=== PATIENT | male | born 1935 | race Caucasian/White ===

== ENCOUNTER 2016-05-20 22:30 | Inpatient (IN) | payer MEDICARE ==
[~2016-05-20] VITALS: Ht 170.2 cm; Wt 77.1 kg
[2016-05-21] MEDS ORDERED: PEPCID20 MG PO (01:41)
[2016-05-21] MEDS ORDERED: ZETIA10 MG PO (01:43)
[2016-05-21] MEDS ORDERED: AMBIEN5 MG PO (01:44)
[2016-05-21] MEDS ORDERED: NOVOLOG100 U/M1 SC (01:47)
[2016-05-21] MEDS ORDERED: NOVOLIN N100 U/ML SQ ×2 (01:49→01:50)
[2016-05-21] MEDS ORDERED: BYSTOLIC5 MG PO (01:51)
[2016-05-21] MEDS ORDERED: MIRALAX17 GM PO (01:53)
[2016-05-21] MEDS ORDERED: BUMEX2 MG PO (01:56)
[2016-05-21] MEDS ORDERED: RENVELA800 MG PO (01:57)
[2016-05-21] MEDS ORDERED: COLACE100 MG PO (01:57)
[2016-05-21] MEDS ORDERED: MELATONIN 3 MG1 TAB PO (01:58)
[2016-05-21] MEDS ORDERED: ASPIRIN81 MG PO (01:59)
[2016-05-21] MEDS ORDERED: FOLIC ACID0.8 MG PO (01:59)
--- NOTE | 2016-05-21 02:45 | NUR ---
RECEIVED TO RM 1130 VIA STRETCHER PER AMBULANCE FROM [facility] ED. DX: ALTERED MENTAL STATUS. ACCOMPANIED BY EMS TECHS AND . PATIENT IS CALM AND COOPERATIVE AT THIS TIME. IT WAS REPORTED THAT PATIENT HAS BEEN MAKING THREATS TO HARM . HX: HTN, DIABETES, HYPERLIPEDEMIA, CAD, RENAL DISEASE ON DIALYSIS 3 TIMES PER WEEK. AWAKE, ALERT AND ORIENTED X 3 NOW, BUT HE DOES GET CONFUSED AND FORGETFUL MORE OF LATE. CONSENT FOR TX. SIGNED PER AND ADMISSION NOTE DONE. MEDICATIONS RECONCILED.
[2016-05-21 06:58] LABS: HEMOGLOBIN A1C 7.9 % (4.8-6.0)
[2016-05-21 07:05] LABS: CHOL - HDL RATIO 3.2 ratio (2.3-4.9); LDL-HDL RATIO 1.8 ratio (1.5-3.5); THYROID STIMULATING HORMONE 1.69 uIU/mL (0.36-3.74)
--- NOTE | 2016-05-21 07:50 | NUR ---
(B)RECEIVED PATIENT SITTING IN A CHAIR IN HIS ROOM. ORIENTED TO SELF, HOSPITAL (BUT DID NOT KNOW WHICH HOSPITAL) DAY, MONTH AND DATE. POOR INSIGHT INTO THE REASON FOR HOSPITALIZATION RELATING "CAUSE THEY PUT ME HERE TO CHANGE SOME OF MY MEDS." ASSESSMENT COMPLETED AND PATIENT IS NOTED TO BECOME MORE CONFUSED THE ASSESSMENT GOES ON. NOTED TO BE LABILE AEB TALKING AND SMILING THEN BECOMES ANGRY WITH PRESSURED SPEECH. RELATES "THIS IS REDICULOUS. TWENTY PEOPLE AND THIS IS THE MOST DISORGANIZED MESS I'VE EVER SEEN." NEGATIVE, IRRITABLE AND PRESSURED SPEECH WHEN FIRST ARRIVED FOR VISITATION. PATIENT THEN BECOMES CALM AND PLEASANT. (I)ADMINISTER MEDS AND MONITOR COMPLIANCE. PROVIDE TIME FOR PATIENT TO VENT FEELINGS AND ENCOURAGE POSITIVE COPING SKILLS. (R)MED COMPLIANT. PATIENT IS CONFUSED AND HAS DIFFICULTY EXPRESSING SELF AND WILL RAMBLE. CONTINUES TO HAVE EPISODES OF BEING IRRITABLE AND NEGATIVE AND HAS TO BE ALLOWED TIME TO VENT THEN WILL BE PLEASANT . (P)CONTINUE POC AND MAINTAIN FALL PRECAUTIONS.
[2016-05-21 09:26] VITALS: BP 152/57
[2016-05-21 13:37] VITALS: BP 152/57
--- NOTE | 2016-05-21 18:22 | NUR ---
DR MACKENZIE PAGED REGARDING INSULIN ORDERS. NUMBER LEFT FOR CALL BACK.
--- NOTE | 2016-05-21 18:27 | NUR ---
SPOKE WITH DR MACKENZIE RE: INSULIN. RELATES WILL SEE HIM IN THE AM. NO ORDERS RECEIVED.
[2016-05-21 19:30] VITALS: BP 169/89
--- NOTE | 2016-05-21 20:19 | NUR ---
RECEIVED IN DAYROOM. WALKING AROUND TALKING TO HIS PEERS AND STAFF. VERY CONFUSED. RAMBLING FROM ONE TOPIC TO THE NEXT. CALM AND COOPERATIVE WITH CARE AND ASSESSMENT. NO SIGNS OF AGGRESSION. REDIRECT AND REORIENT NEEDED. CONTINUES TO TALK WITH HIS PEERS. CONTINUE PLAN OF CARE
[2016-05-22 08:41] LABS: BASOPHILS 0.4 % (0.0-2.0); EOSINOPHILS 1.2 % (0-7); HEMATOCRIT 32.7 % (42.0-54.0); HEMOGLOBIN 10.8 g/dL (13.5-17.5); IMMATURE GRANULOCYTES 0.1 % (0-5); LYMPHOCYTES 10.2 % (15-50); MCH 30.7 pg (26.0-34.0); MCV 92.9 fL (80.0-100.0); MONOCYTES 11.2 % (2-11); NEUTROPHILS 76.9 % (40-80); PLATELET COUNT 111 10x3/uL (130-400); RBC 3.52 10x6/uL (4.20-6.10); RDW 12.5 % (11.5-14.5); WBC 6.9 10x3/uL (4.8-10.8)
[2016-05-22 08:45] VITALS: Ht 170.2 cm; Wt 77.1 kg
[2016-05-22 08:58] LABS: ALBUMIN 3.1 g/dL (3.4-5.0); ANION GAP 13.8 mmol/L (8-16); BILIRUBIN - TOTAL 0.45 mg/dL (0.2-1.3); CALCIUM 10.6 mg/dL (8.5-10.1); CARBON DIOXIDE 29.6 mmol/L (21.0-32.0); CREATININE - SERUM 7.2 mg/dL (0.6-1.3); PHOSPHOROUS 5.4 mg/dL (2.5-4.9); POTASSIUM - SERUM 4.4 mmol/L (3.5-5.1); PROTEIN - SERUM 6.5 g/dL (6.4-8.2)
--- NOTE | 2016-05-22 09:28 | NUR ---
B) Rec'd pt in day room for morning med pass, alert, pleasant mood, cooperative, compliant with meds, no aggression reported. I) Admin meds as ordered, provide group activity as directed. R) No s/s adverse reaction to meds, cooperative in group. P) Cont plan of care including meds and group activity/therapy.
[2016-05-22 13:24] VITALS: BP 194/88
--- NOTE | 2016-05-22 19:38 | NUR ---
RECEIVED IN DAYROOM. SETTING IN CHAIR AWAY FROM PEERS. NOT SOCIALIZING TONIGHT. CALM AND COOPERATIVE WITH CARE AND ASSESSMENT. EYES CLOSED AT TIMES. REINFORCE FALLS SAFETY. CONTINUES TO REST IN CHAIR. CONTINUE PLAN OF CARE
[2016-05-22 22:18] VITALS: BP 159/68
[2016-05-22 22:19] LABS: APPEARANCE HAZY (CLEAR); COLOR YELLOW (YELLOW)
[2016-05-22 22:20] LABS: BILIRUBIN NEGATIVE (NEGATIVE); GLUCOSE 1000 mg/dL (NEGATIVE); KETONE NEGATIVE (NEGATIVE); LEUKOCYTE ESTERASE 2+ (NEGATIVE); NITRITE NEGATIVE (NEGATIVE); PROTEIN 1+ mg/dL (NEGATIVE); UROBILINOGEN NORMAL (NORMAL)
[2016-05-22 22:21] LABS: BACTERIA FEW /hpf (NONE SEEN); RED CELLS - URINE 0-5 /hpf (0-5); WHITE CELLS - URINE >50 /hpf (0-5)
[2016-05-23 07:25] LABS: BASOPHILS 0.4 % (0.0-2.0); EOSINOPHILS 1.4 % (0-7); HEMATOCRIT 33.8 % (42.0-54.0); HEMOGLOBIN 11.1 g/dL (13.5-17.5); IMMATURE GRANULOCYTES 0.1 % (0-5); LYMPHOCYTES 15.6 % (15-50); MCH 30.7 pg (26.0-34.0); MCHC 32.8 g/dL (31.0-37.0); MCV 93.4 fL (80.0-100.0); MEAN PLATELET VOLUME 12.2 fL (7.4-10.4); MONOCYTES 8.8 % (2-11); NEUTROPHILS 73.7 % (40-80); PLATELET COUNT 131 10x3/uL (130-400); RBC 3.62 10x6/uL (4.20-6.10); RDW 12.5 % (11.5-14.5); WBC 8.1 10x3/uL (4.8-10.8)
[2016-05-23 07:38] LABS: CALCIUM 9.7 mg/dL (8.5-10.1); CARBON DIOXIDE 27.3 mmol/L (21.0-32.0); CREATININE - SERUM 8.4 mg/dL (0.6-1.3); PHOSPHOROUS 5.1 mg/dL (2.5-4.9); POTASSIUM - SERUM 4.3 mmol/L (3.5-5.1)
[2016-05-23 09:00] VITALS: BP 124/59
--- NOTE | 2016-05-23 15:10 | NUR ---
RECEIVED THIS AM UP IN CHAIR.DIALYSIS DONE THIS AM.TOLERATED DIALYSIS WELL.CALM AND COOPERATIVE.ORIENTED TO SELF AND HOSPITAL,BUT DOES NOT KNOW NAME OF HOSPITAL OR TOWN,DATE.AMBULATES PER SELF WITH WALKER.WILL CONTINUE WITH PLAN OF CARE,MONITOR FOR SAFETY AND CHANGES.IS COMPLIANT WITH MEDS.
--- NOTE | 2016-05-23 15:39 | PSY ---
PATIENT NAME:JOLYNN PAUL MEDICAL RECORD: [id number] : 33 LOCATION:[facility]LL[facility]uleta1 ADMISSION DATE: 05/20/16 ACCOUNT: [id number] PSYCHIATRIC EVALUATION DATE OF EVALUATION: 05/22/16 Psychiatric Evaluation IDENTIFYING DATA: The patient is 81 years old and he is admitted to the hospital on a voluntary basis. CHIEF COMPLAINT: Agitation. HISTORY OF PRESENT ILLNESS: The patient apparently has a history of dementia. He became agitated yesterday and was threatening to kill his . Apparently, the situation was sufficient such that he had to be brought to the Emergency Room where he continued to make threats and he was subsequently hospitalized on the behavioral unit. Today, he has little or no recollection of these events. He is quite confused. He is not really understanding why he is here or what happened and when it is explained to him, he becomes angry and denies it. PAST MEDICAL HISTORY: Significant for hyperlipidemia, diabetes, hypertension and coronary artery disease. PAST PSYCHIATRIC HISTORY: Significant for an established diagnosis of dementia, although details of this are unclear. ALLERGIES: PENICILLIN, LISINOPRIL, LIPITOR, CIPRO, PRAVACHOL AND REGLAN. CURRENT MEDICATIONS: Include melatonin, Bumex, insulin, Zetia, NovoLog, and Pepcid. SOCIAL HISTORY: The patient is . He does have adult children. He is retired. He denies a history of drug or alcohol abuse. MENTAL STATUS EXAMINATION: The patient is awake, alert and oriented to person and place only. His mood is anxious. His affect is constricted. Thought processes are circumstantial. Memory, concentration and abstraction abilities are moderately impaired and he denies any active intent to harm himself or others as well as any overt psychotic symptoms. ASSETS: Supportive family members. LIABILITIES: Limited insight. DIAGNOSTIC IMPRESSION: AXIS I: Senile dementia of the Alzheimer's type with behavioral disturbances. AXIS II: None. AXIS III: Hypertension, diabetes and coronary artery disease. AXIS IV: Moderate stressors. AXIS V: Global assessment of functioning is 35. PLAN: At this time, the patient is admitted to the hospital secondary to agitated behavior associated with a dementing illness. He will be comprehensively evaluated from both a medical, psychological, and social standpoint. He will be given both mood stabilizing and memory enhancing medications as deemed appropriate. His long-term prognosis is guarded. TRANSINT:[id number] Voice Confirmation ID: [id number] DOCUMENT ID: [id number] CIERRA WINSLOW MD at 1539 CC: [id number] DICTATION DATE: 05/22/16 1246 FIXED INCOME MANAGER: 05/22/16 1303 ADM IN [facility] [address] [place] [address]
[2016-05-23 20:00] VITALS: BP 162/82
--- NOTE | 2016-05-23 20:18 | NUR ---
RECEIVED IN DINING ROOM. SETTING A WHEELCHAIR BY HIMSELF. SOCIAL WITH THIS STAFF MEMBER. IN GOOD SPIRITS. STATES HE HAD A GOOD DAY. ORIENTED X2. CALM AND COOPERATIVE WITH CARE AND ASSESSMENT. ENCOURAGE TO EXPRESS NEEDS. CONTINUES TO SET BY HIMSELF IN DINING ROOM. CONTINUE PLAN OF CARE
[2016-05-24 06:00] LABS: BASOPHILS 0.5 % (0.0-2.0); EOSINOPHILS 2.2 % (0-7); HEMOGLOBIN 9.3 g/dL (13.5-17.5); LYMPHOCYTES 18.4 % (15-50); MCH 30.9 pg (26.0-34.0); MCHC 33.2 g/dL (31.0-37.0); MEAN PLATELET VOLUME 11.8 fL (7.4-10.4); MONOCYTES 15.1 % (2-11); NEUTROPHILS 63.8 % (40-80); PLATELET COUNT 106 10x3/uL (130-400); RBC 3.01 10x6/uL (4.20-6.10); RDW 12.6 % (11.5-14.5)
[2016-05-24 06:08] LABS: WBC 5.8 10x3/uL (4.8-10.8)
[2016-05-24 06:24] LABS: ANION GAP 10.4 mmol/L (8-16); CALCIUM 9.1 mg/dL (8.5-10.1); CARBON DIOXIDE 29.4 mmol/L (21.0-32.0); PHOSPHOROUS 4.1 mg/dL (2.5-4.9); POTASSIUM - SERUM 3.8 mmol/L (3.5-5.1)
[2016-05-24 07:20] LABS: RAPID PLASMA REAGIN Non Reactive (Non Reactive)
[2016-05-24 08:12] VITALS: BP 139/64
[2016-05-24 08:16] LABS: FOLATE (FOLIC ACID) - SERUM 17.1 ng/mL (>3.0)
--- NOTE | 2016-05-24 09:53 | NUR ---
B) Patient is awake and alert, he is very confused, he gets upset because he is confused and forgets what he is saying and what he is suppose to do. He does realize he has some memory loss and this makes him sad. Patient walks with a walker. He is compliant with medications. I) Provide prescribed meds, redirect and reorientate as needed. R) Patient is compliant with medications. He is working with a puzzle. P) Continue plan of care.
--- NOTE | 2016-05-24 14:43 | NUR ---
Nutrition follow-up: Diet: Renal ADA PO intake ~75% of meals Labs reviewed PO intake is good at this time RDN following.
--- NOTE | 2016-05-24 14:51 | PN ---
PATIENT:JOLYNN PAUL MEDICAL RECORD: [id number] LOCATION:[facility]ta ADMISSION DATE: 05/20/16 PROGRESS NOTE DATE OF SERVICE: 05/23/2016 SUBJECTIVE: The patient's case was discussed with staff. He has no new complaint. OBJECTIVE: The patient is in good behavioral control with limited insight about his condition. He tolerates his medicines well. ASSESSMENT: No change in diagnoses. PLAN: The patient has shown significant improvement in his cognition leading me to suspect that some of the difficulties that precipitated the admission were related to a delirium, possibly or probably associated with an incorrect metabolic status and/or medication compliance. He is still clearly demented and shows evidence of clear and very significant cognitive impairment, but his cognition has very much improved in the past for 24-48 hours. Current medicines will be maintained. TRANSINT:[id number] Voice Confirmation ID: [id number] DOCUMENT ID: [id number] CIERRA WINSLOW MD at 1451 CC: [id number] DICTATION DATE: 05/23/16 1533 GREEN HIDE INSPECTOR: 05/23/16 1607 ADM IN [facility] [address] [place] [address]
[2016-05-24 19:46] VITALS: BP 150/73
--- NOTE | 2016-05-25 01:46 | NUR ---
B) Recieved sitting in the day room, alert and oriented to self, when asked where he is he answers 'right here' I) Administered perscrived medications, oriented to location, R) Medication compliant, confused , calm and pleasant. P) Continue Plan of Care.
[2016-05-25 07:42] VITALS: BP 147/68
--- NOTE | 2016-05-25 11:29 | NUR ---
Mr. Keyes had bedside hemodialysis today via his left lower arm av fistula from 0800 until 1100. Average blood flow was 400mls/minute. Net fluid removal was 2000 mls. Post vital signs were: B/P: 144/62, HR: 70, Temp: 98.3, Resps: 16. No complications today.
--- NOTE | 2016-05-25 13:23 | NUR ---
PT HAD DIALYSIS THIS MORNING SO IS TIRED THIS AFTERNOON. PT IS CALM, COOPERATIVE. MED COMPLIANT. FALL PRECAUTIONS MAINTAINED. ORIENTED TO PERSON AND PLACE. REDIRECTION DONE WHEN NEEDED. WLL CONTINUE TO MONITOR. NO AGGRESSION NOTED. CONTINUE PLAN OF CARE.
--- NOTE | 2016-05-25 14:20 | PN ---
PATIENT:JOLYNN PAUL MEDICAL RECORD: [id number] LOCATION:ANABELLA Álvarez112 ADMISSION DATE: 05/20/16 PROGRESS NOTE DATE OF SERVICE: 05/24/2016 SUBJECTIVE: The patient's case was discussed with staff. He has no new complaint. OBJECTIVE: The patient is in good behavioral control. He has not been aggressive. He is sleeping well. ASSESSMENT: No change in diagnoses. PLAN: The patient is clearly demented, although he has improved since admission. The family is wanting him placed in a penitentiary because of his aggression toward his . We have not seen aggression here probably because of the supportive and therapeutic environment he is in. Placement is being sought at this time and if this level of improvement is maintained, I anticipate he could reasonably be transitioned out of the hospital after the weekend. TRANSINT:[id number] Voice Confirmation ID: [id number] DOCUMENT ID: [id number] CIERRA WINSLOW MD at 1420 CC: [id number] DICTATION DATE: 05/24/16 1501 X RAY CONTROL EQUIPMENT REPAIRER: 05/24/16 1735 ADM IN [place] [address] [place] [address]
--- NOTE | 2016-05-25 15:43 | NUR ---
[facility] - Patient's In-Center unit is [facility] on a Sunday//Sunday 1st shift schedule. The clinic was notified of the patient's admission and appropriate medical records forwarded to the unit. Will cont to monitor for further OPHD needs. AARONM PRL
[2016-05-25 19:30] VITALS: BP 184/80
--- NOTE | 2016-05-26 01:12 | NUR ---
B) Recieved sitting in the day room watching TV, alert and oriented to self, unaware that he was in a hospital, calm and pleasant, I) Administered perscribed medications, reoriented as needed, R) Medication compliant resting now quietly in bed, P) Continue plan of care.
[2016-05-26 07:01] LABS: BASOPHILS 0.4 % (0.0-2.0); EOSINOPHILS 3.7 % (0-7); HEMATOCRIT 28.5 % (42.0-54.0); HEMOGLOBIN 9.3 g/dL (13.5-17.5); LYMPHOCYTES 21.1 % (15-50); MCH 30.7 pg (26.0-34.0); MCHC 32.6 g/dL (31.0-37.0); MCV 94.1 fL (80.0-100.0); MEAN PLATELET VOLUME 12.1 fL (7.4-10.4); MONOCYTES 17.8 % (2-11); PLATELET COUNT 101 10x3/uL (130-400); RBC 3.03 10x6/uL (4.20-6.10); RDW 12.8 % (11.5-14.5); WBC 5.2 10x3/uL (4.8-10.8)
[2016-05-26 07:31] LABS: ANION GAP 11.2 mmol/L (8-16); CALCIUM 8.4 mg/dL (8.5-10.1); CREATININE - SERUM 6.1 mg/dL (0.6-1.3); PHOSPHOROUS 4.6 mg/dL (2.5-4.9); POTASSIUM - SERUM 4.2 mmol/L (3.5-5.1)
[2016-05-26 07:59] VITALS: BP 130/55
--- NOTE | 2016-05-26 13:55 | NUR ---
(B)RECEIVED PATIENT SITTING IN A CHAIR AT THE NURSES STATION. ORIENTED TO SELF AND HOSPITAL ALTHOUGH RELATES "I THOUGHT I WAS IN [place]." POOR INSIGHT INTO THE REASON FOR HOSPITALIZATION RELATING "CAUSE I FELL." FISTULA TO LEFT ARM WITH GOOD THRILL AND BRUIT. CONFUSED BUT PLEASANT. SOCIAL HOWEVER DOES NOT FOLLOW TOPIC OF CONVERSATION. (I)ADMINISTER MEDS AND MONITOR COMPLIANCE. REORIENT NEEDED. (R)MED COMPLIANT. POOR REORIENTATION DUE TO IMPAIRED ABILITY TO COMPREHEND, PROCESS AND MAINTAIN INFORMATION. REMAINS CONFUSED HOWEVER VERY PLESANT. FOCUSED ON WHEN HE WILL BE GETTING DIALYSIS. (P)CONTINUE POC AND MAINTAIN FALL PRECAUTIONS.
--- NOTE | 2016-05-26 15:24 | NUR ---
reviewed paperwork and medications with daughter and spouse. reviewed admit packet and welcome packet with both as well. gave another copy of welcome packet to daughter and spouse. reviewed tx plan, disease process, discharge planning, and therapy. both verbalized understanding and thanked me for my assistance. sam rn social services was present and answered more questions in regards to discharge placement. reviewed [facility] testing and results.
--- NOTE | 2016-05-26 16:03 | NUR ---
SW SPOKE WITH PT'S ABOUT PLACEMENT AT [facility]. PT'S STATED THAT [facility] DOES NOT ACCEPT [facility] PT[facility]. SW DISCUSSED SENDING PAPERWORK TO ALL REQUESTED FACILITIES. PT'S WAS GRATEFUL FOR WORK BEING DONE TO HELP HER .
--- NOTE | 2016-05-26 16:18 | PN ---
PATIENT:JOLYNN PAUL MEDICAL RECORD: [id number] LOCATION:[facility] Zuleta ADMISSION DATE: 05/20/16 PROGRESS NOTE DATE OF SERVICE: 05/25/2016 SUBJECTIVE: The patient's case was discussed with staff. He has no new complaint. OBJECTIVE: The patient is in good behavioral control with limited insight about his condition. He is quite impaired cognitively, but has not been aggressive. ASSESSMENT: No change in diagnoses. PLAN: Current therapies and medications will be maintained. His long-term prognosis is guarded. TRANSINT:[id number] Voice Confirmation ID: [id number] DOCUMENT ID: [id number] CIERRA WINSLOW MD at 1618 CC: [id number] DICTATION DATE: 05/25/16 1431 SEAT BUILDER: 05/25/16 1525 ADM IN [place] [address] [place] [address]
[2016-05-26 19:30] VITALS: BP 188/78
--- NOTE | 2016-05-26 20:00 | NUR ---
B) RECEIVED IN DAYROOM SITTING IN W/C. ALERT AND ORIENTED TO SELF AND HOSPITAL. CALM AND COOPERATIVE WITH ASSESSMENT AND CARE. IN PLEASANT MOOD. I) ADMINISTER PRESCRIBED MEDICATIONS , REDIRECT TO NON-REALITY VS REALITY. R) COMPLIANT WITH MEDICATIONS AND UNIT MILIEU. SEEMS MORE PLEASANT TONIGHT. P) CONTINUE CURRENT PLAN OF CARE AND MONITOR.
[2016-05-27 07:50] VITALS: BP 166/58
--- NOTE | 2016-05-27 07:53 | NUR ---
B) Patient is awake and alert, he is oriented to person and place and sometimes tiime and situation other times he is confused and he realizes he gets confused and this causes frustration for him. This am he is pleasant he has not shown any agitation or aggression. I) Provide prescribed meds and reorientate as needed. R) Patient is compliant with meds and unit milieu. P) Continue plan of care.
--- NOTE | 2016-05-27 10:07 | NUR ---
Patient currently in room with dialysis nurse, he is taking his dialysis at this time.
--- NOTE | 2016-05-27 13:30 | NUR ---
Patient's female visitor came to see him now. She had called about an hour ago and asked when visitation is and she said ok.
--- NOTE | 2016-05-27 14:30 | NUR ---
Patients female visitor showed up again and explained to her that visitation is at 3:30. She said "Oh, ok"
[2016-05-27 20:00] VITALS: BP 164/73
--- NOTE | 2016-05-27 20:30 | NUR ---
B) RECEIVED IN DAYROOM SITTING IN W/C. AWAKE AND ALERT TO NAME AND SITUATION. HE IS IN PLEASANT MOOD, BUT GETS CONFUSED. NO AGGRESSION NOTED TONIGHT. I) ADMINISTER PRESCRIBED MEDICATION, REORIENT TO REALITY VS NON-REALITY. VSS. R) MEDICATION COMPLIANT. CALM AND COOPERATIVE WITH ASSESSMENT AND CARE. P) CONTINUE WITH CURRENT PLAN OF CARE AND MONITOIR FOR SAFETY AND CHANGES.
[2016-05-28 07:57] VITALS: BP 159/66
--- NOTE | 2016-05-28 13:20 | NUR ---
(B)RECEIVED PATIENT SITTING IN A CHAIR AT THE NURSES STATION. ORIENTED TO [facility] IN THIS ORDER. PATIENT UNABLE TO VERBALIZE REASON FOR HOSPITALIZATION AEB "CAUSE OF" PATIENT LAUGHS "THAT'S TERRIBLE" LAUGHS AND COULD NOT ANSWER QUESTION. SOCIAL WITH STAFF AND PEERS. CALM AND COOPERATIVE. VERY CONFUSED. OBSSESSES OVER GETTING DRESSING REMOVED FROM FISTULA. (I)ADMINISTER MEDS AND MONITOR COMPLIANCE. INVOLVE IN REALITY BASED GROUPS AND CONVERSATION. (R)MED COMPLIANT. COOPERATIVE WITH UNIT MILEU HOWEVER DUE TO IMPAIRED ABILITY TO COMPREHEND AND PROCESS INFORMATION PATIENT HAS DIFFICULTY FOLLOWING CONVERSATION AND GROUPS. (P)CONTINUE POC AND MAINTAIN FALL PRECAUTIONS.
[2016-05-28 19:30] VITALS: BP 175/78
--- NOTE | 2016-05-28 20:01 | NUR ---
RECEIVED IN DAYROOM. SETTING IN WHEELCHAIR WITH PEERS AT HIS SIDE. SOCIAL WITH STAFF AND PEERS. CALM AND COOPERATIVE WITH STAFF AND PEERS. NO SIGNS OF AGGRESSION. HELPFUL AND CARES FOR PEERS. ENCOURAGE TO EXPRESS NEEDS. CONTINUES TO SOCIALIZE WITH STAFF AND PEERS. CONTINUE PLAN OF CARE
[2016-05-29 02:00] VITALS: BP 147/107
[2016-05-29 07:58] VITALS: BP 183/69
--- NOTE | 2016-05-29 10:00 | NUR ---
B) Received pt in dining room for b'fast, alert, compliant with meds, cooperative with staff, pleasant mood. I) Admin meds as ordered, provide group activity as directed. R) No s/s adverse reaction to meds, cooperative with staff during group activity. P) Cont. plan of care including medications and group therapy.
--- NOTE | 2016-05-29 13:14 | PN ---
PATIENT:JOLYNN PAUL MEDICAL RECORD: [id number] LOCATION:[facility] Zuleta ADMISSION DATE: 05/20/16 PROGRESS NOTE DATE OF SERVICE: 05/26/2016 SUBJECTIVE: The patient's case was discussed with staff. He has no new complaint. OBJECTIVE: The patient was tested by Dr. Caitie Osman's today. He scores of 15/30 on the [place] scale. This is consistent with what I would have estimated and it indicates that he is in the moderate to severe range regarding his dementia. He will be treated with both Aricept and Namenda. His behavior today has been good. The family is still seeking long term placement. TRANSINT:[id number] Voice Confirmation ID: [id number] DOCUMENT ID: [id number] CIERRA WINSLOW MD at 1314 CC: [id number] DICTATION DATE: 05/26/16 1626 COMPRESSED GAS PLANT WORKER: 05/26/162034 ADM IN [place] [address] [place] [address]
[2016-05-29 20:00] VITALS: BP 147/101
--- NOTE | 2016-05-29 21:44 | NUR ---
RECEIVED IN DAYROOM. SETTING IN WHEELCHAIR. CALM AND COOPERATIVE WITH CARE AND ASSESSMENT. SOCIAL WITH STAFF AND PEERS. CONFUSED. NO SIGNS OF AGGGRESSION. ENCOURAGE TO EXPRESS NEEDS. TOOK PM MEDS ORDERED. RESTING IN BED EYES CLOSED AT THIS TIME. CONTINUE PLAN OF CARE
[2016-05-30 10:36] VITALS: BP 171/70
--- NOTE | 2016-05-30 14:35 | PN ---
PATIENT:JOLYNN PAUL MEDICAL RECORD: [id number] LOCATION:[facility]LL[facility] Zuleta ADMISSION DATE: 05/20/16 PROGRESS NOTE DATE OF SERVICE: 05/29/2016 SUBJECTIVE: The patient's case was discussed with staff. He has no new complaint. OBJECTIVE: The patient denies intent to harm himself or others. He generally tolerates his medicines well. He is quite impaired cognitively. ASSESSMENT: No change in diagnoses. PLAN: Current medicines have been reviewed and will be maintained. Long-term prognosis is guarded. TRANSINT:[id number] Voice Confirmation ID: [id number] DOCUMENT ID: [id number] CIERRA WINSLOW MD at 1435 CC: [id number] DICTATION DATE: 05/29/16 1324 FIRE BATTALION CHIEF: 05/29/16 203 ADM IN [place] [id number] [place] [address]
[2016-05-30] MEDS ORDERED: NAMENDA5 MG PO (14:46)
[2016-05-30] MEDS ORDERED: ARICEPT5 MG PO (14:46)
[2016-05-30] MEDS ORDERED: HUMULIN N100 U/ML SC (14:46)
[2016-05-30] MEDS ORDERED: SENSIPAR30 MG PO (14:46)
--- NOTE | 2016-05-30 16:43 | NUR ---
DIAYLSIS TREATMENT INITIATED AT 1319 AND DISCONTINUED AT 1619. REMOVED 1500ML OF FLUID. PROCESSED 57.7 LITERS OF BLOOD. PT VERY FRIENDLY. POST VITALS FOLLOWS; BPl 176/58, HR: 65, TEMP: 97.6, RESP: 14.
--- NOTE | 2016-05-30 17:25 | NUR ---
(B)RECEIVED PATIENT SITTING IN A CHAIR AT THE NURSES STATION. ORIENTED TO SELF ONLY. POOR INSIGHT INTO THE REASON FOR HOSPITALIZATION. SOCIALIZES WITH PEERS. PATIENT LAUGHS AND TALKS WITH STAFF HOWEVER DOES NOT FOLLOW TOPIC OF CONVERSATION. LAUGHS AT THINGS THAT HAPPEN ON THE UNIT. APPEARS THAT PATIENT IS AWARE OF HIS FORGETFULNESS AND LAUGHS AND TALKS OF OTHER THINGS TO DISTRACT STAFF'S ATTENTION. CONFUSED AND PLEASANT. (I)ADMINISTER MEDS AND MONITOR COMPLIANCE. REORIENT NEEDED. (R)MED COMPLIANT. APPEARS TO UNDERSTAND WHEN REORIENTED HOWEVER PATIENT CAN NOT REPEAT INFORMATION JUST GIVEN TO HIM. LAUGHS AND JUMPS FROM TOPIC TO TOPIC. (P)CONTINUE POC AND MAINTAIN FALL PRECAUTIONS.
[2016-05-30 19:33] VITALS: BP 176/68
--- NOTE | 2016-05-30 19:39 | NUR ---
RECEIVED IN HALLWAY. OUTSIDE OF NURSES STATION. SETTING IN WHEELCHAIR WITH PEERS AT HIS SIDE. SOCIALIZING WITH PEERS. CALM AND COOPERATIVE WITH CARE AND ASSESSMENT. ENCOURAGE TO EXPRESS NEEDS. REINFORCE FALLS SAFETY. CONTINUES TO SET CALMLY IN HALLWAY. CONTINUE PLAN OF CARE
--- NOTE | 2016-05-31 08:19 | NUR ---
(B)RECEIVED PATIENT SITTING ON THE SIDE OF HIS BED. ORIENTED TO HOSPITAL RELATING "THIS IS NOT MY HOSPITAL. [facility]" "SundayJUN 03 AND THIS IS A NEW YEAR 2017." RELATES IS HOSPITALIZED DUE TO "CAUSE EVERYONE WAS PICKING ON ME. NO IT WAS MEDICAL." THRILL AND BRUIT PRESENT IN LEFT ARM FISTULA. SOCIAL. CALM AND COOPERATIVE. (I)ADMINISTER MEDS AND MONITOR COMPLIANCE. REORIENT NEEDED. (R)MED COMPLIANT. PATIENT IS RECEPTIVE AND REORIENTS EASILY HOWEVER IS FORGETFUL AND REQUIRES REPEATED INFORMATION. COMPLIANT WITH UNIT MILEU. (P)CONTINUE POC AND MIANTAIN FALL PRECAUTIONS.
[2016-05-31 08:45] VITALS: BP 165/62
--- NOTE | 2016-05-31 10:25 | NUR ---
REPORT CALLED TO JUJU MELÉNDEZ LPN.
--- NOTE | 2016-05-31 11:54 | NUR ---
PATIENT RELATED MARY HAS NOT BEEN HERE TODAY TO CHECK ON HIS STUFF. INFORMED PATIENT HE WILL TAKE HIS BELONGINGS WITH HIM WHEN HE GOES TO [facility]. PATIENT RELATED HE DIDN'T KNOW ANYTHING ABOUT GOING ANYWHERE HOWEVER NURSE SPOKE WITH HIM LAST NIGHT THAT HE AND TWO OTHER PATIENT'S WOULD BE GOING TO [facility] TODAY. AGITATED AT THIS TIME.
--- NOTE | 2016-05-31 13:04 | NUR ---
PATIENT DISCHARGED TO [facility] ACCOMPANIED BY FACILITY STAFF [facility]. PERSONAL BELONGINGS RETURNED TO PATIENT AND SENT WITH STAFF. PAPERWORK COPIED AND SENT WITH FACILITY STAFF. SOMEWHAT IRRITABLE DUE TO FORGETTING HE WAS GOING TO ANOTHER FACILITY TODAY AND FEELS IT WAS HIDDEN FROM HIM. CONDITION STABLE AT TIME OF DISCHARGE.
--- NOTE | 2016-05-31 16:57 | PN ---
PATIENT:JOLYNN PAUL MEDICAL RECORD: [id number] LOCATION:ANABELLA Zuleta ADMISSION DATE: 05/20/16 PROGRESS NOTE DATE OF SERVICE: 05/30/2016 SUBJECTIVE: The patient's case was discussed with staff. He has no new complaint. OBJECTIVE: The patient is in good behavioral control. He is impaired cognitively, but has not been aggressive. ASSESSMENT: No change in diagnoses. PLAN: The patient will be transitioned out of the hospital soon. Hopefully, this can take place this afternoon or in the morning. He will be going to the detention. He does not represent an acute danger to himself or others at this time. TRANSINT:[id number] Voice Confirmation ID: [id number] DOCUMENT ID: [id number] CIERRA WINSLOW MD at 1657 CC: [id number] DICTATION DATE: 05/30/16 1438 CROSS ROLLER: 05/30/16 1453 DIS IN 05/31/16 [place] [address] [place] [address]
--- NOTE | 2016-06-01 13:54 | PN ---
PATIENT:JOLYNN PAUL MEDICAL RECORD: [id number] LOCATION:ANABELLA Zuleta ADMISSION DATE: 05/20/16 PROGRESS NOTE DATE OF SERVICE: 05/31/2016 SUBJECTIVE: The patient's case was discussed with staff. He has no new complaint. OBJECTIVE: The patient is calm and cooperative. He has not been aggressive with staff. ASSESSMENT: No change in diagnoses. PLAN: The patient was transitioned out of the hospital today. His long-term prognosis is guarded. Brief supportive and educational interventions were made. TRANSINT:[id number] Voice Confirmation ID: [id number] DOCUMENT ID: [id number] CIERRA WINSLOW MD at 1354 CC: [id number] DICTATION DATE: 05/31/16 1703 LOADMASTER: 05/31/16 2254 DIS IN 05/31/16 [place] [id number] [place] [address]
--- NOTE | 2016-06-13 13:54 | DS ---
PATIENT:JOLYNN PAUL :33 MEDICAL RECORD: [id number] DISCHARGE SUMMARY ADMISSION DATE: 05/20/16 DISCHARGE DATE: 05/31/16 IDENTIFYING DATA: The patient is 81 years old and he was admitted to the hospital on a voluntary basis secondary to agitation. The patient has a history of dementia. He became agitated and was threatening to kill his the day prior to admission. Apparently, the agitation was sufficient such that he had to be brought to the Emergency Room where he continued to make the threats and subsequently was hospitalized on the behavioral unit. On the day of examination, the patient had a little or no recollection of these events and he was quite confused. He had no real understanding of why he was here and when it was explained to him, he becomes angry and denies it. HOSPITAL COURSE: The patient was admitted to the hospital and fully evaluated from both a medical, psychological, and social standpoint. He subsequently was treated with both memory enhancing and mood stabilizing medications and did show improvement. It was learned that the patient had had a number of very serious behavioral outbursts almost exclusively directed toward his elderly and frail . A social media senior associate in consultation with the family determined that the family was wishing residential placement of some kind time for the safety of the patient's . We assisted in finding a retirement for the patient. He was subsequently treated with medications, stabilized and transferred to the retirement. DISCHARGE DIAGNOSES: AXIS I: Senile dementia of the Alzheimer's type with behavioral disturbances. AXIS II: None. AXIS III: Hypertension, diabetes and urinary coronary artery disease. AXIS IV: Moderate stressors. AXIS V: Global assessment of functioning is 40. PLAN: At the time of discharge, the patient was in good behavioral control with limited insight about his condition. He was tolerating his medications reasonably well. He certainly had no evidence of acute or direct dangerousness. His long-term prognosis is guarded and followup is to be with his primary care retirement physician. TRANSINT:[id number] Voice Confirmation ID: [id number] DOCUMENT ID: [id number] CIERRA WINSLOW MD at 1354 CC: [id number] DICTATION DATE: 06/12/16 1438 BAND EDGER: 06/12/161946 DIS IN 05/31/16 [id number] [place] [id number]
== END 2016-05-31 12:50 | DRG 56 ==
LOC: D.PSYCH 22:30
PROVIDERS: Internal Medicine Nephrology; ADMIT Psychiatry & Neurology Psychiatry
PROC: 5A1D60Z (ICD-10-PCS; principal; 2016-05-22)
DX: G30.1 Alzheimer's disease with late onset (principal); N18.6 End stage renal disease; F02.81 Dementia in other diseases classified elsewhere, unspecified severity, with behavioral disturbance; I12.0 Hypertensive chronic kidney disease with stage 5 chronic kidney disease or end stage renal disease; E11.22 Type 2 diabetes mellitus with diabetic chronic kidney disease; Z99.2 Dependence on renal dialysis; Z87.891 Personal history of nicotine dependence; D63.1 Anemia in chronic kidney disease; E83.39 Other disorders of phosphorus metabolism; E78.5 Hyperlipidemia, unspecified; I25.10 Atherosclerotic heart disease of native coronary artery without angina pectoris; E11.40 Type 2 diabetes mellitus with diabetic neuropathy, unspecified